=== PATIENT | female | born 1980 | race Caucasian/White ===

== ENCOUNTER 2022-11-13 15:02 | Emergency (ER) | payer OTHER ==
[2022-11-13 15:19] VITALS: BP 116/68; PULSE 83; RESP 18; TEMP 98.7; BMI 36.9
[2022-11-13] MEDS ORDERED: KETOROLAC TROMETHAMINE 15 MG/ML VIAL IM ONE (16:05)
[2022-11-13] MEDS ORDERED: LIDOCAINE 5% TOPICAL PATCH TP ONE (16:05)
[2022-11-13] MEDS ORDERED: KETOROLAC TROMETHAMINE 15 MG/ML VIAL ONE (16:08)
[2022-11-13] MEDS ORDERED: LIDOCAINE 5% TOPICAL PATCH ONE (16:08)
[2022-11-13] MEDS ORDERED: LIDOCAINE PATCH REMOVAL MC SCH (22:00)
== END 2022-11-13 18:13 | disposition home or self-care (01) ==
LOC: JERFT 15:02
PROC: 3E0233Z Introduction of Anti-inflammatory into Muscle, Percutaneous Approach (ICD-10-PCS; principal; 2022-11-13)
DX: M54.41 Lumbago with sciatica, right side (principal)
CPT/HCPCS: 72100-TC-FY; 84703; 99284-25